=== PATIENT | male | born 1955 | race Caucasian/White ===

== ENCOUNTER → 2017-01-21 | Outpatient (CLI) | payer MEDICARE, SELFPAY ==
[~2017-01-21] VITALS: Ht 182.9 cm; Wt 152.0 kg
== END ==
LOC: OPSV 07:30
DX: L40.50 Arthropathic psoriasis, unspecified (principal); M15.0 Primary generalized (osteo)arthritis; L40.9 Psoriasis, unspecified; M47.816 Spondylosis without myelopathy or radiculopathy, lumbar region; E11.9 Type 2 diabetes mellitus without complications; M75.101 Unspecified rotator cuff tear or rupture of right shoulder, not specified as traumatic
CPT/HCPCS: 96413; 96415; J1745; Q0163

== ENCOUNTER → 2017-02-18 | Outpatient (CLI) | payer MEDICARE, SELFPAY ==
[~2017-02-18] VITALS: Ht 182.9 cm; Wt 152.0 kg
== END ==
LOC: OPSV 07:12
DX: L40.50 Arthropathic psoriasis, unspecified (principal); M15.0 Primary generalized (osteo)arthritis; G56.00 Carpal tunnel syndrome, unspecified upper limb; M75.101 Unspecified rotator cuff tear or rupture of right shoulder, not specified as traumatic; M47.816 Spondylosis without myelopathy or radiculopathy, lumbar region; E11.9 Type 2 diabetes mellitus without complications; R21 Rash and other nonspecific skin eruption
CPT/HCPCS: 96365; 96366; J1745; Q0163

== ENCOUNTER → 2017-03-18 | Outpatient (CLI) | payer MEDICARE, OTHER ==
[~2017-03-18] VITALS: Ht 182.9 cm; Wt 152.0 kg
== END ==
LOC: OPSV 07:00
DX: L40.50 Arthropathic psoriasis, unspecified (principal); M15.0 Primary generalized (osteo)arthritis; M47.816 Spondylosis without myelopathy or radiculopathy, lumbar region; E11.9 Type 2 diabetes mellitus without complications; M75.101 Unspecified rotator cuff tear or rupture of right shoulder, not specified as traumatic
CPT/HCPCS: 96413; 96415; J1745; Q0163

== ENCOUNTER → 2017-04-15 | Outpatient (CLI) | payer MEDICARE, SELFPAY ==
[~2017-04-15] VITALS: Ht 182.9 cm; Wt 152.0 kg
== END ==
LOC: OPSV 07:00
DX: L40.50 Arthropathic psoriasis, unspecified (principal); M47.816 Spondylosis without myelopathy or radiculopathy, lumbar region; E11.9 Type 2 diabetes mellitus without complications; M75.101 Unspecified rotator cuff tear or rupture of right shoulder, not specified as traumatic
CPT/HCPCS: 96413; 96415; J1745; Q0163

== ENCOUNTER → 2020-10-29 | Outpatient (CLI) | payer MEDICARE, SELFPAY ==
[~2020-10-29] VITALS: Ht 182.9 cm; Wt 142.9 kg
[~2020-10-29] MED LIST: HYDROCODON-ACE1 EAC4 PO; IBUPROFEN600 MG PO; VALACYCLOVIR1000 MG PO
== END ==
LOC: OPSV 07:00
DX: L40.50 Arthropathic psoriasis, unspecified (principal)
CPT/HCPCS: 96365; 96366; J1745; J7030

== ENCOUNTER → 2020-11-28 | Outpatient (CLI) | payer MEDICARE, SELFPAY | LOC: OPSV 07:00 | DX: L40.50 Arthropathic psoriasis, unspecified (principal) | CPT/HCPCS: 96365; 96366; 96413; 96415; J1745; J7030 ==

== ENCOUNTER → 2020-12-26 | Outpatient (CLI) | payer MEDICARE, SELFPAY ==
[~2020-12-26] VITALS: Ht 182.9 cm; Wt 142.9 kg
== END ==
LOC: OPSV 07:00
DX: L40.50 Arthropathic psoriasis, unspecified (principal); L40.9 Psoriasis, unspecified
CPT/HCPCS: 96365; 96366; 96413; 96415; J1745; J7030

== ENCOUNTER → 2021-01-23 | Outpatient (CLI) | payer MEDICARE, SELFPAY ==
[~2021-01-23] VITALS: Ht 182.9 cm; Wt 142.9 kg
== END ==
LOC: OPSV 07:00
DX: L40.50 Arthropathic psoriasis, unspecified (principal)
CPT/HCPCS: 96365; 96366; 96413; 96415; J1745; J7030

== ENCOUNTER → 2021-02-20 | Outpatient (CLI) | payer MEDICARE ==
[~2021-02-20] VITALS: Ht 182.9 cm; Wt 142.9 kg
== END ==
LOC: OPSV 07:00
DX: L40.50 Arthropathic psoriasis, unspecified (principal)
CPT/HCPCS: 96365; 96366; 96375; 96413; 96415; J1745; J7030

== ENCOUNTER → 2021-03-20 | Outpatient (CLI) | payer MEDICARE ==
[~2021-03-20] VITALS: Ht 182.9 cm; Wt 142.9 kg
== END ==
LOC: OPSV 07:00
DX: L40.50 Arthropathic psoriasis, unspecified (principal); Z79.899 Other long term (current) drug therapy
CPT/HCPCS: 96413; 96415; J1745; J7030

== ENCOUNTER → 2021-04-17 | Outpatient (CLI) | payer MEDICARE ==
[~2021-04-17] VITALS: Ht 182.9 cm; Wt 142.9 kg
== END ==
LOC: OPSV 07:00
DX: L40.50 Arthropathic psoriasis, unspecified (principal)
CPT/HCPCS: 96413; 96415; J1745; J7030

== ENCOUNTER → 2021-04-22 | Outpatient (CLI) | payer MEDICARE | LOC: ECHO 11:27 | DX: I35.0 Nonrheumatic aortic (valve) stenosis (principal) | CPT/HCPCS: ECHO; 93306 ==

== ENCOUNTER 2021-05-03 03:23 | Emergency (ER) | payer MEDICARE, SELFPAY ==
[2021-05-03] MEDS ORDERED: HYDROCODON-ACE1 EAC4 PO (05:39)
[2021-05-03] MEDS ORDERED: VALACYCLOVIR1000 MG PO (05:39)
[2021-05-03] MEDS ORDERED: IBUPROFEN600 MG PO (05:39)
== END 2021-05-03 06:00 | disposition home or self-care (01) ==
LOC: ER1 03:23
DX: B02.9 Zoster without complications (principal); E11.9 Type 2 diabetes mellitus without complications; I11.9 Hypertensive heart disease without heart failure; E78.5 Hyperlipidemia, unspecified
CPT/HCPCS: 99282

== ENCOUNTER → 2021-05-29 | Outpatient (CLI) | payer MEDICARE, OTHER ==
[~2021-05-29] VITALS: Ht 182.9 cm; Wt 142.9 kg
== END ==
LOC: OPSV 05-18 07:00
DX: L40.50 Arthropathic psoriasis, unspecified (principal)
CPT/HCPCS: 96413; 96415; J1745; J7030

== ENCOUNTER → 2021-07-08 | Outpatient (CLI) | payer MEDICARE ==
[~2021-07-08] VITALS: Ht 182.9 cm; Wt 142.9 kg
== END ==
LOC: OPSV 06:52
DX: L40.50 Arthropathic psoriasis, unspecified (principal)
CPT/HCPCS: 96413; 96415; J1745; J7030

== ENCOUNTER → 2021-08-07 | Outpatient (CLI) | payer MEDICARE ==
[~2021-08-07] VITALS: Ht 182.9 cm; Wt 142.9 kg
== END ==
LOC: OPSV 06:21
DX: L40.50 Arthropathic psoriasis, unspecified (principal)
CPT/HCPCS: 96413; 96415; J1745; J7030

== ENCOUNTER → 2021-09-11 | Outpatient (CLI) | payer MEDICARE ==
[~2021-09-11] VITALS: Ht 182.9 cm; Wt 142.9 kg
== END ==
LOC: OPSV 08:00
DX: L40.50 Arthropathic psoriasis, unspecified (principal)
CPT/HCPCS: 96413; 96415; J1745; J7030

== ENCOUNTER → 2021-10-09 | Outpatient (CLI) | payer MEDICARE ==
[~2021-10-09] VITALS: Ht 182.9 cm; Wt 142.9 kg
== END ==
LOC: OPSV 07:10
DX: L40.50 Arthropathic psoriasis, unspecified (principal)
CPT/HCPCS: 96413; 96415; J1745; J7030

== ENCOUNTER → 2021-11-13 | Outpatient (CLI) | payer MEDICARE ==
[~2021-11-13] VITALS: Ht 182.9 cm; Wt 142.9 kg
== END ==
LOC: OPSV 11-06 07:30
DX: L40.50 Arthropathic psoriasis, unspecified (principal)
CPT/HCPCS: 96413; 96415; J1745; J7030

== ENCOUNTER → 2021-12-11 | Outpatient (CLI) | payer MEDICARE ==
[~2021-12-11] VITALS: Ht 182.9 cm; Wt 142.9 kg
== END ==
LOC: OPSV 08:00
DX: L40.50 Arthropathic psoriasis, unspecified (principal)
CPT/HCPCS: 96413; 96415; J1745; J7030

== ENCOUNTER → 2022-01-08 | Outpatient (CLI) | payer MEDICARE ==
[~2022-01-08] VITALS: Ht 182.9 cm; Wt 142.9 kg
== END ==
LOC: OPSV 07:19
DX: L40.50 Arthropathic psoriasis, unspecified (principal); L40.9 Psoriasis, unspecified
CPT/HCPCS: 96375; 96413; 96415; J1745; J7030

== ENCOUNTER → 2022-03-05 | Outpatient (CLI) | payer MEDICARE ==
[~2022-03-05] VITALS: Ht 182.9 cm; Wt 142.9 kg
== END ==
LOC: OPSV 08:00
DX: L40.50 Arthropathic psoriasis, unspecified (principal)
CPT/HCPCS: 96375; 96413; 96415; J1745; J7030

== ENCOUNTER → 2022-04-02 | Outpatient (CLI) | payer MEDICARE ==
[~2022-04-02] VITALS: Ht 182.9 cm; Wt 142.9 kg
== END ==
LOC: OPSV 07:53
DX: L40.50 Arthropathic psoriasis, unspecified (principal)
CPT/HCPCS: 96413; 96415; J1745; J7030

== ENCOUNTER 2022-05-14 16:10 | Emergency (ER) | payer MEDICARE ==
[2022-05-14 17:09] LABS: HEMOGLOBIN 12.8 gm/dl (14.0-17.5); RED BLOOD COUNT 4.14 M/UL (4.20-5.50); WHITE BLOOD COUNT 9.6 K/UL (4.5-11.0)
[2022-05-14 17:33] LABS: BUN/CREATININE RATIO 17 (0-10)
== END 2022-05-14 20:55 | disposition home or self-care (01) ==
LOC: ER1 16:10
PROVIDERS: Nurse Practitioner
DX: J18.9 Pneumonia, unspecified organism (principal); E11.9 Type 2 diabetes mellitus without complications; E78.5 Hyperlipidemia, unspecified; I10 Essential (primary) hypertension; Z20.822 Contact with and (suspected) exposure to COVID-19
CPT/HCPCS: 0240U; 36415; 71046; 80053; 82550; 82553; 83880; 84484; 85025; 85379; 93005; 99285; Q9967

== ENCOUNTER → 2022-05-27 | Outpatient (CLI) | payer MEDICARE | LOC: US 09:55 → ECHO 11:15 → US 13:30 | DX: R01.1 Cardiac murmur, unspecified (principal); I65.22 Occlusion and stenosis of left carotid artery; I08.2 Rheumatic disorders of both aortic and tricuspid valves; I77.819 Aortic ectasia, unspecified site | CPT/HCPCS: ECHO; 93306; 93880 ==

== ENCOUNTER → 2022-07-01 | Outpatient (CLI) | payer MEDICARE ==
[~2022-07-01] VITALS: Ht 182.9 cm; Wt 142.9 kg
== END ==
LOC: OPSV 08:00 → RT 08:02
DX: Z01.818 Encounter for other preprocedural examination (principal); L40.50 Arthropathic psoriasis, unspecified
CPT/HCPCS: 93005; 96413; 96415; J1745; J7030

== ENCOUNTER → 2022-07-29 | Outpatient (CLI) | payer MEDICARE | LOC: OPSV 07:57 | DX: L40.50 Arthropathic psoriasis, unspecified (principal) | CPT/HCPCS: J1745; J7030 ==